=== PATIENT | female | born 1955 | race Caucasian/White ===

== ENCOUNTER 2017-03-26 09:55 | Emergency (ER) | payer OTHER ==
[~2017-03-26] VITALS: Ht 162.6 cm; Wt 72.6 kg
[~2017-03-26 09:55] MED LIST: ANUHCC TOP; APAP/HYDROCODON1 T13 PO; ASPIR 8181 MG PO; COL100 PO; FLUOXETINE40 MG PO; FOS10 PO; GUAIFENESI100 MG/52 PO; LAC PO; LOTENSIN10 MG PO; METOPROLOL SUCC25 M1 PO; NEP PO; NEU300 PO; NIFEDIPINE ER60 MG PO; NOVI SQ; PHOSLO667 MG PO; RENA-VITE1 TAB PO; SIMVASTATIN20 M1 PO; THERAGRAN-M1 TA4 PO; ZES20 PO; [UNRECOGNIZED DRUG - OTHER] PO
[2017-03-26 11:05] VITALS: BP 135/61
== END 2017-03-26 12:00 | disposition home or self-care (01) ==
LOC: ED 09:55
DX: S13.4XXA Sprain of ligaments of cervical spine, initial encounter (principal); S06.0X1A Concussion with loss of consciousness of 30 minutes or less, initial encounter; E78.5 Hyperlipidemia, unspecified; E11.9 Type 2 diabetes mellitus without complications; I10 Essential (primary) hypertension; V43.92XA Unspecified car occupant injured in collision with other type car in traffic accident, initial encounter; Y93.89 Activity, other specified; Y99.8 Other external cause status; Y92.89 Other specified places as the place of occurrence of the external cause
CPT/HCPCS: J1885

== ENCOUNTER 2017-04-29 12:32 | Emergency (ER) | payer OTHER ==
[2017-04-29 15:55] LABS: CALCIUM 9.7 mg/dL (8.5-10.1); CARBON DIOXIDE 33.6 mmol/L (21-32); POTASSIUM SERUM 3.4 mmol/L (3.5-5.1)
[2017-04-29 16:01] LABS: BASOPHIL % 0.8 % (0-2); PLATELET COUNT 192 x10^3mcL (130-400); RED CELL DISTRIBUTION WIDTH 13.5 % (11.5-14.5)
[2017-04-29 16:56] VITALS: BP 99/64
== END 2017-04-29 17:01 | disposition home or self-care (01) ==
LOC: ED 12:32
PROVIDERS: Emergency Medicine
DX: N39.0 Urinary tract infection, site not specified (principal); I10 Essential (primary) hypertension; E11.9 Type 2 diabetes mellitus without complications; Z79.899 Other long term (current) drug therapy
CPT/HCPCS: 36415

== ENCOUNTER 2017-10-03 10:28 | Emergency (ER) | payer OTHER ==
[~2017-10-03] VITALS: Ht 162.6 cm; Wt 67.6 kg
[2017-10-03 10:36] VITALS: Ht 162.6 cm; Wt 67.6 kg
[2017-10-03 11:31] LABS: BASOPHIL % 0.9 % (0-2); PLATELET COUNT 163 x10^3mcL (130-400); RED CELL DISTRIBUTION WIDTH 13.6 % (11.5-14.5)
[2017-10-03 11:55] LABS: ALBUMIN 3.6 g/dL (3.4-5.0); BILIRUBIN TOTAL 0.59 mg/dL (0.20-1.00); CALCIUM 9.3 mg/dL (8.5-10.1); CARBON DIOXIDE 28.8 mmol/L (21-32); POTASSIUM SERUM 4.4 mmol/L (3.5-5.1); TOTAL PROTEIN, SERUM 7.2 g/dL (6.4-8.2)
[2017-10-03 11:57] LABS: CHOLESTEROL/HDL RATIO 2.2; CREATININE SERUM 4.8 mg/dL (0.6-1.0)
[2017-10-03 12:07] LABS: T3 TOTAL 0.62 ng/mL
[2017-10-03 12:20] LABS: FREE T4 1.23 ng/dL (0.76-1.46); FREE THYROXINE INDEX 3.8 ug/dL (1.4-4.5); T4(THYROXINE) 10.9 ug/dL (4.7-13.3)
[2017-10-03] MEDS ORDERED: PANTOPRAZOLE SO40 M1 PO (12:44)
[2017-10-03] MEDS ORDERED: ASPIRIN FOR CHI81 M1 PO (12:44)
[2017-10-03] MEDS ORDERED: LIPI20 PO (12:44)
[2017-10-03] MEDS ORDERED: RENA-VITE RX1 TAB PO (12:45)
[2017-10-03] MEDS ORDERED: VIC PO (12:46)
[2017-10-03] MEDS ORDERED: LEXAPRO5 M1 PO (12:46)
[2017-10-03] MEDS ORDERED: FOSRENOL500 MG PO (12:47)
[2017-10-03] MEDS ORDERED: NAPROXEN500 MG PO (12:47)
[2017-10-03 15:08] LABS: microscopic required? YES; urine erythrocyte 1+ (NEGATIVE)
[2017-10-03 15:37] VITALS: BP 156/72
== END 2017-10-03 15:37 | disposition short-term general hospital (02) ==
LOC: ED 10:28
PROVIDERS: Specialist
DX: R55 Syncope and collapse (principal); E11.22 Type 2 diabetes mellitus with diabetic chronic kidney disease; I12.0 Hypertensive chronic kidney disease with stage 5 chronic kidney disease or end stage renal disease; N18.6 End stage renal disease; Z99.2 Dependence on renal dialysis; E78.5 Hyperlipidemia, unspecified
CPT/HCPCS: 83880; 84439; J7030; Q0092; Q9967

== ENCOUNTER 2017-11-21 10:00 | Inpatient (IN) | payer OTHER ==
[~2017-11-21] VITALS: Ht 165.1 cm; Wt 71.2 kg
[~2017-11-21 10:00] MED LIST changes: +ASPIRIN FOR CHI81 M1 PO; +FOSRENOL500 MG PO; +LEXAPRO5 M1 PO; +LIPI20 PO; +NAPROXEN500 MG PO; +PANTOPRAZOLE SO40 M1 PO; +RENA-VITE RX1 TAB PO; +VIC PO
[2017-11-21] MEDS ORDERED: RENAGEL800 M1 PO (11:35)
[2017-11-21] MEDS ORDERED: LEXAPRO10 MG PO (11:36)
[2017-11-21] MEDS ORDERED: XAN5 PO (11:37)
[2017-11-21] MEDS ORDERED: MEGL PO (11:38)
[2017-11-21 12:24] LABS: BASOPHIL % 0.6 % (0-2); PLATELET COUNT 162 x10^3mcL (130-400)
[2017-11-21 12:52] LABS: microscopic required? YES; urine erythrocyte TRACE (NEGATIVE)
[2017-11-21 12:55] LABS: ALBUMIN 3.6 g/dL (3.4-5.0); BILIRUBIN TOTAL 0.9 mg/dL (0.20-1.00); CALCIUM 9.4 mg/dL (8.5-10.1); CARBON DIOXIDE 30.9 mmol/L (21-32); POTASSIUM SERUM 4.9 mmol/L (3.5-5.1); TOTAL PROTEIN, SERUM 6.5 g/dL (6.4-8.2)
[2017-11-21 16:09] LABS: AMPHETAMINE QUAL UR NONE DETECTED (NEG <=1000)
[2017-11-21 16:20] VITALS: BP 152/74
[2017-11-21 16:21] VITALS: BP 152/74
[2017-11-21 16:21] LABS: T3 TOTAL 0.78 ng/mL
[2017-11-21 16:26] LABS: MAGNESIUM 2.2 mg/dL (1.8-2.4); PHOSPHOROUS 4.8 mg/dL (2.5-4.9)
[2017-11-21 16:27] LABS: CHOLESTEROL/HDL RATIO 1.8
[2017-11-21 16:29] VITALS: Ht 165.1 cm; Wt 71.2 kg
[2017-11-21 16:36] LABS: FREE T4 1.27 ng/dL (0.76-1.46); FREE THYROXINE INDEX 3.9 ug/dL (1.4-4.5); T4(THYROXINE) 9.9 ug/dL (4.7-13.3)
[2017-11-21 22:02] VITALS: BP 144/59
[2017-11-22 04:46] VITALS: BP 145/77
[2017-11-22 07:00] LABS: BASOPHIL % 0.9 % (0-2); PLATELET COUNT 160 x10^3mcL (130-400)
[2017-11-22 07:13] LABS: CARBON DIOXIDE 30.6 mmol/L (21-32); PHOSPHOROUS 5.6 mg/dL (2.5-4.9); POTASSIUM SERUM 3.9 mmol/L (3.5-5.1)
[2017-11-22 07:20] LABS: CREATININE SERUM 5.3 mg/dL (0.6-1.0)
[2017-11-22 09:23] VITALS: BP 142/70
[2017-11-22 12:43] VITALS: BP 119/70
[2017-11-22 18:09] VITALS: BP 146/74
[2017-11-22 21:39] VITALS: BP 124/71
[2017-11-23 05:39] VITALS: BP 150/64
[2017-11-23 07:11] LABS: BASOPHIL % 0.2 % (0-2); PLATELET COUNT 173 x10^3mcL (130-400); RED CELL DISTRIBUTION WIDTH 12.7 % (11.5-14.5)
[2017-11-23 07:40] LABS: CALCIUM 10.4 mg/dL (8.5-10.1); CARBON DIOXIDE 25.4 mmol/L (21-32); MAGNESIUM 2.5 mg/dL (1.8-2.4); PHOSPHOROUS 6.1 mg/dL (2.5-4.9); POTASSIUM SERUM 4.7 mmol/L (3.5-5.1)
[2017-11-23 07:43] LABS: CREATININE SERUM 7.8 mg/dL (0.6-1.0)
[2017-11-23 09:45] VITALS: BP 159/83
[2017-11-23] MEDS ORDERED: LEVOFLOXACIN750 M1 PO ×2 (10:11→15:12)
[2017-11-23] MEDS ORDERED: CULTURELLE DIGE1 CAP PO (10:12)
[2017-11-23] MEDS ORDERED: LEVAQUIN500 M1 PO ×2 (10:12→15:12)
[2017-11-23] MEDS ORDERED: FLE10 PO (10:13)
[2017-11-23 12:30] VITALS: BP 159/83
[2017-11-23 13:39] VITALS: BP 117/62
[2017-11-23 13:53] VITALS: BP 156/86
== END 2017-11-23 14:35 | disposition home or self-care (01) | DRG 689 ==
LOC: ED 10:00 → DU 14:42 → MU 11-22 08:38
PROVIDERS: Emergency Medicine; Family Medicine
DX: N39.0 Urinary tract infection, site not specified (principal); N17.0 Acute kidney failure with tubular necrosis; N18.6 End stage renal disease; I71.02 Dissection of abdominal aorta; Q61.3 Polycystic kidney, unspecified; I16.0 Hypertensive urgency; I51.7 Cardiomegaly; R31.0 Gross hematuria; K57.90 Diverticulosis of intestine, part unspecified, without perforation or abscess without bleeding; L80 Vitiligo; F12.10 Cannabis abuse, uncomplicated; Z68.27 Body mass index [BMI] 27.0-27.9, adult; Z99.2 Dependence on renal dialysis; Z79.891 Long term (current) use of opiate analgesic; Z79.82 Long term (current) use of aspirin
CPT/HCPCS: 83880; 84439; 94150; A4719; J0696; J2270; J2930; J3490; J7030; Q0092; Q9967

== ENCOUNTER 2018-04-27 12:13 | Emergency (ER) | payer OTHER ==
[~2018-04-27] VITALS: Ht 162.6 cm; Wt 66.7 kg
[~2018-04-27 12:13] MED LIST changes: +CULTURELLE DIGE1 CAP PO; +FLE10 PO; +LEVAQUIN500 M1 PO; +LEVOFLOXACIN750 M1 PO; +LEXAPRO10 MG PO; +MEGL PO; +RENAGEL800 M1 PO; +XAN5 PO
[2018-04-27 12:18] VITALS: Ht 162.6 cm; Wt 66.7 kg
[2018-04-27 14:39] LABS: BASOPHIL % 0.9 % (0-2); PLATELET COUNT 172 x10^3mcL (130-400); RED CELL DISTRIBUTION WIDTH 13.1 % (11.5-14.5)
[2018-04-27 14:58] LABS: FREE T4 1.28 ng/dL (0.76-1.46); FREE THYROXINE INDEX 3.8 ug/dL (1.4-4.5); T4(THYROXINE) 10.4 ug/dL (4.7-13.3)
[2018-04-27 15:00] LABS: BILIRUBIN TOTAL 0.9 mg/dL (0.20-1.00); CARBON DIOXIDE 28.4 mmol/L (21-32); TOTAL PROTEIN, SERUM 7.2 g/dL (6.4-8.2)
[2018-04-27 15:02] LABS: CREATININE SERUM 10.5 mg/dL (0.6-1.0); T3 TOTAL 0.83 ng/mL
[2018-04-27 16:02] VITALS: BP 154/102
== END 2018-04-27 16:02 | disposition home or self-care (01) ==
LOC: ED 12:13
PROVIDERS: Emergency Medicine
DX: E11.42 Type 2 diabetes mellitus with diabetic polyneuropathy (principal); E16.2 Hypoglycemia, unspecified; E11.22 Type 2 diabetes mellitus with diabetic chronic kidney disease; I12.0 Hypertensive chronic kidney disease with stage 5 chronic kidney disease or end stage renal disease; N18.6 End stage renal disease; Z99.2 Dependence on renal dialysis
CPT/HCPCS: 36415; 82962; 84439

== ENCOUNTER 2018-09-09 07:31 | Day surgery (SDC) | payer OTHER ==
[~2018-09-09] VITALS: Ht 162.6 cm; Wt 69.4 kg
[2018-09-09 08:14] VITALS: BP 134/91
[2018-09-09 10:53] VITALS: BP 129/99
== END 2018-09-09 11:30 | disposition home or self-care (01) ==
LOC: GI 07:31 → OR 09:30 → GI 11:30
PROVIDERS: Internal Medicine
PROC: 0DB58ZX Excision of Esophagus, Via Natural or Artificial Opening Endoscopic, Diagnostic (ICD-10-PCS; 2018-09-09)
PROC: 0DB98ZX Excision of Duodenum, Via Natural or Artificial Opening Endoscopic, Diagnostic (ICD-10-PCS; principal; 2018-09-09 09:30)
PROC: 0DB68ZX Excision of Stomach, Via Natural or Artificial Opening Endoscopic, Diagnostic (ICD-10-PCS; 2018-09-09 09:30)
DX: K22.2 Esophageal obstruction (principal); K22.70 Barrett's esophagus without dysplasia; K29.50 Unspecified chronic gastritis without bleeding; K31.7 Polyp of stomach and duodenum; R63.4 Abnormal weight loss; I71.4 Abdominal aortic aneurysm, without rupture; I12.0 Hypertensive chronic kidney disease with stage 5 chronic kidney disease or end stage renal disease; N18.6 End stage renal disease; F41.9 Anxiety disorder, unspecified; E78.5 Hyperlipidemia, unspecified; Z68.28 Body mass index [BMI] 28.0-28.9, adult; Z99.2 Dependence on renal dialysis
CPT/HCPCS: 43235; G0500; J1200; J1610; J2250; J2310; J3010; J3490

== ENCOUNTER 2018-12-23 11:52 | Emergency (ER) | payer OTHER ==
[~2018-12-23] VITALS: Ht 162.6 cm; Wt 69.4 kg
[2018-12-23 11:54] VITALS: Ht 162.6 cm; Wt 69.4 kg
[2018-12-23 12:34] LABS: BASOPHIL % 0.9 % (0-2); PLATELET COUNT 202 x10^3mcL (130-400); RED CELL DISTRIBUTION WIDTH 13.7 % (11.5-14.5)
[2018-12-23 13:04] LABS: ALBUMIN 3.5 g/dL (3.4-5.0); CALCIUM 8.9 mg/dL (8.5-10.1); CARBON DIOXIDE 31.6 mmol/L (21-32); T4(THYROXINE) 9.2 ug/dL (4.7-13.3); TOTAL PROTEIN, SERUM 6.8 g/dL (6.4-8.2)
[2018-12-23 13:05] LABS: CREATININE SERUM 9.4 mg/dL (0.6-1.0)
[2018-12-23 13:27] LABS: BILIRUBIN TOTAL 0.82 mg/dL (0.20-1.00)
[2018-12-23 15:05] VITALS: BP 106/48
== END 2018-12-23 15:05 | disposition home or self-care (01) ==
LOC: ED 11:52
PROVIDERS: Emergency Medicine
DX: J98.01 Acute bronchospasm (principal); E78.00 Pure hypercholesterolemia, unspecified; I12.0 Hypertensive chronic kidney disease with stage 5 chronic kidney disease or end stage renal disease; N18.6 End stage renal disease; Z99.2 Dependence on renal dialysis; Q61.3 Polycystic kidney, unspecified; Z72.0 Tobacco use; E78.5 Hyperlipidemia, unspecified; Z90.49 Acquired absence of other specified parts of digestive tract
CPT/HCPCS: 36415; 83880; J2930; J3490; J7613; J7644

== ENCOUNTER 2018-12-30 12:24 | Inpatient (IN) | payer OTHER ==
[~2018-12-30] VITALS: Ht 165.1 cm; Wt 73.2 kg
[2018-12-30 12:49] VITALS: Ht 165.1 cm; Wt 73.2 kg
[2018-12-30 13:39] LABS: BASOPHIL % 0.4 % (0-2); PLATELET COUNT 143 x10^3mcL (130-400); RED CELL DISTRIBUTION WIDTH 13.7 % (11.5-14.5)
[2018-12-30 14:05] LABS: BILIRUBIN TOTAL 0.98 mg/dL (0.20-1.00); CALCIUM 9.2 mg/dL (8.5-10.1); CARBON DIOXIDE 25.7 mmol/L (21-32); POTASSIUM SERUM 3.3 mmol/L (3.5-5.1); TOTAL PROTEIN, SERUM 6.5 g/dL (6.4-8.2)
[2018-12-30 14:07] LABS: ALBUMIN 3.2 g/dL (3.4-5.0)
[2018-12-30 14:09] LABS: CREATININE SERUM 8.6 mg/dL (0.6-1.0)
[2018-12-30 16:56] VITALS: BP 112/69
[2018-12-30 17:05] VITALS: BP 132/77
[2018-12-30 21:06] VITALS: BP 135/81
[2018-12-31 00:15] VITALS: BP 138/62
[2018-12-31] MEDS ORDERED: LEXAPRO20 MG PO (05:32)
[2018-12-31] MEDS ORDERED: NOR5 PO (05:33)
[2018-12-31 05:43] VITALS: BP 151/78
[2018-12-31 07:26] LABS: CALCIUM 8.5 mg/dL (8.5-10.1); CARBON DIOXIDE 26.6 mmol/L (21-32); POTASSIUM SERUM 4.3 mmol/L (3.5-5.1)
[2018-12-31 07:28] LABS: CREATININE SERUM 5.9 mg/dL (0.6-1.0)
[2018-12-31 07:59] LABS: BASOPHIL % 0.3 % (0-2); PLATELET COUNT 139 x10^3mcL (130-400); RED CELL DISTRIBUTION WIDTH 12.9 % (11.5-14.5)
[2018-12-31 10:00] VITALS: BP 136/73
[2018-12-31 12:26] VITALS: BP 139/79
[2018-12-31 17:23] VITALS: BP 109/57
[2018-12-31 20:45] VITALS: BP 131/77
[2019-01-01 05:50] VITALS: BP 134/69
[2019-01-01 07:39] VITALS: BP 142/79
[2019-01-01 08:31] LABS: BASOPHIL % 0.2 % (0-2); PLATELET COUNT 142 x10^3mcL (130-400); RED CELL DISTRIBUTION WIDTH 13.7 % (11.5-14.5)
[2019-01-01 08:54] LABS: CALCIUM 8.6 mg/dL (8.5-10.1); CARBON DIOXIDE 27.9 mmol/L (21-32); POTASSIUM SERUM 4.5 mmol/L (3.5-5.1)
[2019-01-01 12:58] VITALS: BP 138/82
[2019-01-01 16:10] VITALS: BP 128/63
[2019-01-01 20:15] VITALS: BP 137/72
[2019-01-02 06:01] VITALS: BP 148/70
[2019-01-02 06:38] LABS: BASOPHIL % 0.4 % (0-2); PLATELET COUNT 148 x10^3mcL (130-400); RED CELL DISTRIBUTION WIDTH 13.6 % (11.5-14.5)
[2019-01-02 06:45] LABS: CARBON DIOXIDE 27.9 mmol/L (21-32); POTASSIUM SERUM 4.2 mmol/L (3.5-5.1)
[2019-01-02 06:53] LABS: CREATININE SERUM 6.1 mg/dL (0.6-1.0)
[2019-01-02 07:09] VITALS: BP 154/76
[2019-01-02 10:46] VITALS: BP 143/80
[2019-01-02 16:13] VITALS: BP 125/59
[2019-01-02 20:50] VITALS: BP 121/64
[2019-01-03 05:42] VITALS: BP 155/76
[2019-01-03 06:30] LABS: BASOPHIL % 0.5 % (0-2); PLATELET COUNT 149 x10^3mcL (130-400); RED CELL DISTRIBUTION WIDTH 13.7 % (11.5-14.5)
[2019-01-03 07:08] VITALS: BP 139/85
[2019-01-03 07:19] LABS: CALCIUM 8.4 mg/dL (8.5-10.1); CARBON DIOXIDE 25.9 mmol/L (21-32); POTASSIUM SERUM 4.8 mmol/L (3.5-5.1)
[2019-01-03 07:35] LABS: CREATININE SERUM 7.9 mg/dL (0.6-1.0)
[2019-01-03 12:47] VITALS: BP 136/66
[2019-01-03] MEDS ORDERED: METOPROLOL TART25 M1 PO (15:18)
[2019-01-03] MEDS ORDERED: ELIQUIS2.5 MG PO (15:18)
[2019-01-03] MEDS ORDERED: ZIT250 PO (15:19)
[2019-01-03 15:22] VITALS: BP 136/66
== END 2019-01-03 17:15 | disposition home or self-care (01) | DRG 871 ==
LOC: ED 12:24 → DU 15:32
PROVIDERS: Emergency Medicine; Family Medicine; ADMIT Internal Medicine
DX: A41.9 Sepsis, unspecified organism (principal); J15.9 Unspecified bacterial pneumonia; N18.6 End stage renal disease; E87.2 Acidosis; I12.0 Hypertensive chronic kidney disease with stage 5 chronic kidney disease or end stage renal disease; I48.91 Unspecified atrial fibrillation; E78.5 Hyperlipidemia, unspecified; Z99.2 Dependence on renal dialysis
CPT/HCPCS: 82962; 83880; 85378; A9540; J0456; J0696; J1650; J2405; J3490; J7030; Q0092

== ENCOUNTER 2020-07-27 10:29 | Emergency (ER) | payer OTHER, MEDICAID, SELFPAY ==
[~2020-07-27] VITALS: Ht 162.6 cm; Wt 70.3 kg
[~2020-07-27 10:29] MED LIST changes: +ELIQUIS2.5 MG PO; +LEXAPRO20 MG PO; +METOPROLOL TART25 M1 PO; +NOR5 PO; +ZIT250 PO
[2020-07-27 10:31] VITALS: Ht 162.6 cm; Wt 70.3 kg
[2020-07-27 12:09] LABS: BASOPHIL % 0.6 % (0-2); PLATELET COUNT 204 x10^3mcL (130-400); RED CELL DISTRIBUTION WIDTH 13.9 % (11.5-14.5)
[2020-07-27 12:45] LABS: ALBUMIN 3.6 g/dL (3.4-5.0); BILIRUBIN TOTAL 0.72 mg/dL (0.20-1.00); CALCIUM 8.1 mg/dL (8.5-10.1); CARBON DIOXIDE 28.5 mmol/L (21-32); POTASSIUM SERUM 4.5 mmol/L (3.5-5.1); TOTAL PROTEIN, SERUM 7.3 g/dL (6.4-8.2)
[2020-07-27 13:00] LABS: CREATININE SERUM 10.9 mg/dL (0.6-1.0)
[2020-07-27 13:19] VITALS: BP 122/59
== END 2020-07-27 13:19 | disposition home or self-care (01) ==
LOC: ED 10:29
PROVIDERS: Emergency Medicine
DX: K52.9 Noninfective gastroenteritis and colitis, unspecified (principal); N19 Unspecified kidney failure; I10 Essential (primary) hypertension; Z20.828 Contact with and (suspected) exposure to other viral communicable diseases
CPT/HCPCS: Q0092; U0003

== ENCOUNTER 2020-11-30 12:03 | Emergency (ER) | payer OTHER, MEDICAID ==
[~2020-11-30] VITALS: Ht 162.6 cm; Wt 72.1 kg
[2020-11-30 12:10] VITALS: Ht 162.6 cm; Wt 72.1 kg
[2020-11-30 12:42] LABS: PLATELET COUNT 186 x10^3mcL (179-408)
[2020-11-30 12:48] LABS: BASOPHIL % 2.4 % (0.2-1.3); RED CELL DISTRIBUTION WIDTH 16.3 % (12.3-17.7)
[2020-11-30 13:17] LABS: ALBUMIN 3.6 g/dL (3.4-5.0); BILIRUBIN TOTAL 1.1 mg/dL (0.20-1.00); CALCIUM 8.2 mg/dL (8.5-10.1); CARBON DIOXIDE 29.4 mmol/L (21-32); POTASSIUM SERUM 4.3 mmol/L (3.5-5.1); TOTAL PROTEIN, SERUM 7.2 g/dL (6.4-8.2)
[2020-11-30] MEDS ORDERED: GOOD NEIGHBOR M25 MG PO (14:15)
[2020-11-30 14:44] VITALS: BP 154/74
== END 2020-11-30 14:44 | disposition home or self-care (01) ==
LOC: ED 12:03
PROVIDERS: Emergency Medicine
DX: D64.9 Anemia, unspecified (principal); R42 Dizziness and giddiness; I12.0 Hypertensive chronic kidney disease with stage 5 chronic kidney disease or end stage renal disease; N18.6 End stage renal disease; N17.9 Acute kidney failure, unspecified; Z99.2 Dependence on renal dialysis
CPT/HCPCS: J8597